=== PATIENT | female | born 1980 | race African-American/Black ===

== ENCOUNTER 2022-06-26 10:37 | Emergency (ER) | payer MEDICAID ==
[~2022-06-26] VITALS: Ht 162.6 cm; Wt 46.0 kg
[2022-06-26 10:39] VITALS: BP 128/77
[2022-06-26] MEDS ORDERED: CEPH500T MT (13:25)
== END 2022-06-26 13:41 | disposition home or self-care (01) ==
LOC: ER 10:37
DX: J03.90 Acute tonsillitis, unspecified (principal); Z90.710 Acquired absence of both cervix and uterus
CPT/HCPCS: 81025; 99283